=== PATIENT | male | born 1970 | race Caucasian/White ===

== ENCOUNTER 2020-02-17 01:40 | Emergency (ER) | payer BC ==
[2020-02-17] MEDS ORDERED: PROPARACAINE 0.5% OPHTH DROPS 15 ML BTL RIGHT EYE STA (01:41)
[2020-02-17 01:49] VITALS: BP 139/97; PULSE 71; RESP 16; TEMP 97.9
--- NOTE | 2020-02-17 01:57 | ED ---
Eye Problem HPI - General Chief complaint: Eye Problems Stated complaint: Eye Problem Time Seen by Provider: 02/17/20 01:41 Source: patient Mode of arrival: ambulatory Limitations: no limitations - History of Present Illness Initial comments: 50-year-old male patient presents to the emergency department today for evaluation of pain and redness to the right eye. Patient states that he was cleaning leaves in the yard yesterday when he started to have discomfort. Patient states he is also grinding a metal object yesterday. Patient states he has been using saline drops with minimal relief of symptoms. Patient denies any disturbance of vision to the right eye. Denies any fever or chills. Denies headache. - Related Data Allergies Allergy/AdvReac Type Severity Reaction Status Date / Time No Known Allergies Allergy Verified 02/17/20 01:49 Review of Systems ROS Statement: Those systems with pertinent positive or pertinent negative responses have been documented in the HPI. ROS Other: All systems not noted in ROS Statement are negative. Past Medical History Past Medical History: No Reported History History of Any Multi-Drug Resistant Organisms: None Reported Past Surgical History: Orthopedic Surgery Past Psychological History: No Psychological Hx Reported Smoking Status: Never smoker Past Alcohol Use History: None Reported Past Drug Use History: None Reported General Exam Limitations: no limitations General appearance: alert, in no apparent distress, other Eye exam: Present: PERRL, EOMI, conjunctival injection (right), other (There is obvious foreign body noted to the right cornea near 7:00. Clear drainage. No eyelid swelling or periorbital erythema or edema.). Absent: normal appearance, scleral icterus, periorbital swelling Respiratory exam: Present: normal lung sounds bilaterally. Absent: respiratory distress, wheezes, rales, rhonchi, stridor Cardiovascular Exam: Present: regular rate, normal rhythm, normal heart sounds. Absent: systolic murmur, diastolic murmur, rubs, gallop, clicks Neurological exam: Present: alert, oriented X3, CN II-XII intact Psychiatric exam: Present: normal affect, normal mood Skin exam: Present: warm, dry, intact, normal color. Absent: rash Course Vital Signs 02/17/20 01:44 Temperature 97.9 F Pulse Rate 71 Respiratory 16 Rate Blood Pressure 139/97 O2 Sat by Pulse 100 Oximetry Procedures - Forgein Body Removal Eye Site: Right Location in eye(s): 7:00, cornea Anesthetic Used: Proparacaine Foreign Body Suspected: Metal Forgein Body Removal Technique: Algerbrush Remaining Debris: Yes (Small, rust ring) Patient Tolerated: no complications Medical Decision Making - Medical Decision Making 50-year-old male patient presented to the emergency department today for evaluation of foreign body to the right eye. Physical examination did reveal right-sided conjunctival injection. Sclera drainage. No visual disturbance. Eye was anesthetized using proparacaine and foreign body was removedwith Cottle brush. There was a small amount of debris left over with a rust ring. He will be started on Vigamox eyedrops to use 4 times daily while awake. He is instructed to follow-up with ophthalmology if his symptoms aren't improved over the next 1-2 days. Return parameters discussed in detail. He verbalizes understanding and agrees with this plan. Disposition Clinical Impression: Foreign body of right eye Disposition: HOME SELF-CARE Condition: Good Instructions (If sedation given, give patient instructions): Eye Foreign Body (ED) Additional Instructions: Use eye drops one drop to the eye four times daily while awake, use these for one week. follow-up with craft recruiter her symptoms are not improved over the next 1-2 days. Return to the emergency department for any new, worsening, or concerning symptoms. Is patient prescribed a controlled substance at d/c from ED?: No Referrals: Carlos Pollock MD [Primary Care Provider] - 1-2 days Trevin Mckeon MD [STAFF PHYSICIAN] - 1-2 days Time of Disposition: 01:57
[2020-02-17] MEDS ORDERED: MOXIFLOXACIN HCL 0.5% DROPS 3 ML BTL RIGHT EYE ONE (02:00)
== END 2020-02-17 02:00 | disposition home or self-care (01) ==
LOC: EC 01:40
DX: T15.01XA Foreign body in cornea, right eye, initial encounter (principal); X58.XXXA Exposure to other specified factors, initial encounter
CPT/HCPCS: 65220; 99283